=== PATIENT | male | born 1970 | race Caucasian/White ===

== ENCOUNTER → 2018-05-16 | Outpatient (CLI) | payer OTHER ==
[~2018-05-16] VITALS: Ht 170.2 cm; Wt 81.0 kg
[~2018-05-16] MED LIST: ACETYLCHOLINE CHL OPHT SOLN 1:100 2 ML VIAL ONE; CHLORHEXIDINE GLUCONATE 2 % 1 PACK (2 CLOTHS) TOPICAL PRN; FLUT1SPR5 EACH NARE; GABA600T PO; GEMF600T PO; HYALURONIDASE/LIDOCAINE/BUPIVACAINE 5 ML SYR RIGHT EYE ONE; LACTATED RINGER'S 1000 ML IV PRN; LIDOCAINE HCL 1% PF 30 ML VIAL ONE; METOPROLOL TARTRATE 25 MG TAB PO PRN; MODA200T12 PO; MONT5CHW5 CHEW; POVIDONE IODINE 5% (ANTISEPSIS KIT) 4 APPLICATIONS EACH NARE PRN; PRED5TAB PO; PROPARACAINE HCL 0.5% OPHT SOLN 15 ML BTL RIGHT EYE ONE; PROPOFOL 200 MG/20 ML AMP ONE; SODIUM CHLORID 0.9% 500 ML IV PRN; TOBRAMYCIN/DEXAMETHASONE OPTH OINT 3.5 GM TUBE ONE; VALA1TAB PO; ZOCO40TA PO
[2018-05-16 08:35] VITALS: PULSE 53
[2018-05-16] MEDS: PHENYLEPHRINE HCL 10% OPTH SOLN 5 ML BTL RIGHT EYE SCH ×4 (08:36→08:51)
[2018-05-16] MEDS: CYCLOPENTOLATE HCL 1% OPHT SOLN 2 ML BTL RIGHT EYE SCH ×4 (08:36→08:51)
[2018-05-16] MEDS: FLURBIPROFEN 0.03% OPHT SOLN 2.5 ML BTL RIGHT EYE SCH ×4 (08:36→08:51)
[2018-05-16] MEDS: TROPICAMIDE 1% OPHT SOLN 15 ML BTL RIGHT EYE SCH ×4 (08:36→08:51)
[2018-05-16 08:56] VITALS: PULSE 60
[2018-05-16 10:00] VITALS: BP 132/92; PULSE 56; RESP 16; TEMP 97.9; O2SAT 97
--- NOTE | 2018-05-16 11:04 | MP ---
cc: Christopher Giron MD DATE OF OPERATION: 05/16/2018 [facility] #: [id number] PREOPERATIVE DIAGNOSIS: Dislocated posterior chamber intraocular lens, right eye. POSTOPERATIVE DIAGNOSIS: Dislocated posterior chamber intraocular lens, right eye. PROCEDURE PERFORMED: Intraocular lens exchange, right eye. ANESTHESIA: Retrobulbar with MAC. COMPLICATIONS: None. DESCRIPTION OF PROCEDURE: After informed consent was obtained, the patient was brought into the operative suite and placed on appropriate monitors by the anesthesia service. The patient had been given a previous retrobulbar injection of local anesthetic agent by the anesthesia service. The patient's right eye was prepped and draped in the usual sterile fashion. A wire lid speculum was placed. A temporal, 7 mm fornix-based conjunctival peritomy was made at the limbus and conjunctiva was bluntly dissected back to expose bare sclera. Bipolar cautery was used to cauterize scleral bleeders. A 6.5 mm partial-thickness scleral incision was made in a vertical fashion approximately 1.5 mm temporal to the temporal limbus. The crescent blade was then used to tunnel forward within the sclera, into clear cornea. A paracentesis incision was then made superiorly and the anterior chamber was filled with viscoelastic. The anterior chamber was then entered through the scleral tunnel incision using a 1 mm jace keratome. The incision was opened up to the full internal 7 mm extent temporally. Viscoelastic was then injected beneath the inferiorly-dislocated intracapsular IOL. It was then grasped through the main incision using a 0.12 mm forceps and removed from the eye. As the patient had had 3 prior vitrectomies, there was no vitreous coming into the anterior chamber with the IOL. No anterior vitrectomy needed to be performed. The anterior chamber was deepened with viscoelastic and the anterior chamber lens was inserted and repeatedly, carefully placed into the chamber angle to ensure that there was no iris incarceration. A small peripheral iridectomy was made temporally, and the viscoelastic was then removed from the eye with the irrigation/aspiration handpiece. The incision was closed with three interrupted 10-0 nylon sutures. The knots were trimmed and rotated. The anterior chamber was reformed with balanced saline and it was deep at the end of the case. The pupil was mostly round, although did develop some tiny stretch-induced sphincterotomies when the large implant and its capsular bag were removed. There was clearly no vitreous in the anterior chamber. A few droplets of silicone oil (residual from his prior retinal detachment surgeries) found their way into the anterior chamber and were removed. The conjunctiva was then closed over the scleral incision with a single 10-0 nylon suture. All drapes were then removed. TobraDex ointment was then placed in the eye, which was closed beneath a semi-pressure patch dressing. The patient tolerated the procedure well and left the operating room awake and alert. He is to followup in my office in the morning. MD FRIDA Escobar/MAIN , 10:37 AM , 11:03 AM
== END ==
LOC: PHSDC 07:02
PROVIDERS: ATTEND Optometrist Occupational Vision
DX: T85.22XA Displacement of intraocular lens, initial encounter (principal); H30.13 Disseminated chorioretinal inflammation, generalized; H33.21 Serous retinal detachment, right eye
CPT/HCPCS: 00142; 66986; J7040; V2630